=== PATIENT | female | born 1935 | race Caucasian/White ===

== ENCOUNTER 2017-12-08 17:49 | Emergency (ER) | payer MEDICARE, OTHER ==
[~2017-12-08] VITALS: Ht 165.1 cm; Wt 86.6 kg
[~2017-12-08 17:49] MED LIST: AMBIEN 5 MG TABL5 M1 PO; CENTRUM SILVER1 EAC4 PO; CIPRO500 MG PO; COZAAR 50 MG TA50 M1 PO; FLEXERIL PO; KLOR-CON 1010 MEQ; LASIX 20 MG TAB20 MG; LEVOTHYROXIN0.025 MG PO; LYRICA 50 MG50 MG PO; NIACIN 100MG T100 M1 PO; NORCO 5-325 TA1 EAC1 PO; NORCO 5-325 TA1 EACH PO; OMEGA-31000 M1 PO; PHENAZOPYRIDIN200 M2 PO; PREVACID15 MG PO; SIMVASTATIN20 MG PO; TIZANIDINE HCL4 MG PO; ZOLOFT25 MG PO
[2017-12-08] MEDS ORDERED: BUSPIRONE HCL10 MG PO (18:03)
[2017-12-08 18:17] LABS: URINE BILIRUBIN NEGATIVE (Negative); URINE BLOOD 2+ (Negative); URINE CLARITY CLOUDY; URINE COLOR YELLOW; URINE GLUCOSE-RANDOM NEGATIVE (Negative); URINE KETONES NEGATIVE (Negative); URINE LEUKOCYTES-REFLEX 3+ (Negative); URINE NITRITE-REFLEX POSITIVE (Negative); URINE PROTEIN 2+ (Negative); URINE UROBILINOGEN 0.2 E.U./dl (0.2-1.0)
[2017-12-08 18:25] LABS: BACTERIA-REFLEX >30 Many /HPF (None Seen); CASTS None Seen /LPF (None Seen); CRYSTALS None Seen /LPF (None Seen); SQUAMOUS 0-3 Few /LPF (0-3); URINE WBC-REFLEX >25 Many /HPF (0-5)
[2017-12-08] MEDS ORDERED: CIPRO500 MG PO (18:38)
[2017-12-08 18:41] VITALS: BP 128/59
== END 2017-12-08 18:44 | disposition home or self-care (01) ==
LOC: M.ERS 17:49
PROVIDERS: Physician Assistant
DX: N39.0 Urinary tract infection, site not specified (principal)

== ENCOUNTER 2019-09-21 12:53 | Emergency (ER) | payer MEDICARE, OTHER ==
[~2019-09-21] VITALS: Ht 172.7 cm; Wt 86.2 kg
[~2019-09-21 12:53] MED LIST changes: +BUSPIRONE HCL10 MG PO
[2019-09-21] MEDS ORDERED: TIZANIDINE HCL4 M1 PO (13:08)
[2019-09-21] MEDS ORDERED: TRAMADOL 50 MG50 MG PO (13:09)
[2019-09-21] MEDS ORDERED: LIPITOR 20 MG T20 M1 PO (13:09)
[2019-09-21] MEDS ORDERED: NORCO 5-325 TA1 EAC1 PO (14:46)
[2019-09-21 15:14] VITALS: BP 111/70
== END 2019-09-21 15:14 | disposition home or self-care (01) ==
LOC: M.ERS 12:53
DX: G57.91 Unspecified mononeuropathy of right lower limb (principal)

== ENCOUNTER → 2019-09-29 | Outpatient (CLI) | payer MEDICARE, OTHER ==
[~2019-09-29] MED LIST changes: +LIPITOR 20 MG T20 M1 PO; +TIZANIDINE HCL4 M1 PO; +TRAMADOL 50 MG50 MG PO
--- NOTE | 2019-09-29 12:59 | 2DMMODE ---
[place] [address] 2 D/M-MODE ECHOCARDIOGRAM Name: BERNICEFAITH Erendira Room: [facility]#: [id number] Admission: 09/29/19 Attend Phys: Mayco Brothers, Discharge: Date of : 35 Date of Service: 09/29/19 1257 Report #: [id number] THIS REPORT FOR: cc: Jose Marie MD, K. Gay MD Blick, David R. MD [facility] ~ APPROVED REPORT Study performed: 09/29/2019 11:11:36 EXAM: Comprehensive 2D, Doppler, and color-flow Echocardiogram Patient Location: Out-Patient BSA: 1.96 HR: 55 bpm BP: 138/82 mmHg Other Information Study Quality: Good Indications Dyspnea 2D Dimensions IVSd: 10.26 (7-11mm) LVOT Diam: 20.51 (18-24mm) LVDd: 41.19 mm PWd: 10.57 (7-11mm) Ascending Ao: 33.98 (22-36mm) LVDs: 18.67 (25-40mm) Aortic Root: 26.85 mm Volumes Left Atrial Volume (Systole) LA ESV Index: 13.70 mL/m2 Aortic Valve AoV Peak Miguel.: 1.52 m/s AO Peak Gr.: 9.19 mmHg LVOT Max P.40 mmHg AO Mean Gr.: 4.93 mmHg LVOT Mean P.70 mmHg LVOT Max V: 0.92 m/s AO V2 VTI: 33.01 cm LVOT Mean V: 0.60 m/s MARTHA (VTI): 2.41 cm2 LVOT V1 VTI: 24.06 cm Mitral Valve E/A Ratio: 0.91 [place] [address] 2 D/M-MODE ECHOCARDIOGRAM Name: FAITH QUEEN Room: [facility]#: [id number] Admission: 09/29/19 Attend Phys: Mayco Brothers, Discharge: Date of : 35 Date of Service: 09/29/19 1257 Report #: [id number] MV Decel. Time: 331.51 ms MV E Max Miguel.: 0.80 m/s MV PHT: 96.14 ms MVA (PHT): 2.29 cm2 TDI E/Lateral E': 16.00 E/Medial E': 13.33 Medial E' Miguel.: 0.06 m/s Lateral E' Miguel.: 0.05 m/s Pulmonary Valve PV Peak Miguel.: 1.01 m/s PV Peak Gr.: 4.09 mmHg Tricuspid Valve RAP Estimate: 5.00 mmHg TR Peak Gr.: 22.57 mmHg RVSP: 27.57 mmHg PA Pressure: 27.57 mmHg Left Ventricle The left ventricle is normal size. There is normal LV segmental wall motion. There is normal left ventricular wall thickness. Left ventricular systolic function is normal. The left ventricular ejection fraction is within the normal range. LVEF is 60-65%. Grade I - abnormal relaxation pattern. Right Ventricle The right ventricle is normal size. The right ventricular systolic function is normal. Atria The left atrium size is normal. The right atrium size is normal. Aortic Valve Mild aortic valve sclerosis. No aortic regurgitation is present. There is no aortic valvular stenosis. Mitral Valve Mild mitral annular calcification. There is trace mitral valve regurgitation noted. No evidence of mitral valve stenosis. Tricuspid Valve The tricuspid valve is normal in structure. Mild tricuspid regurgitation. estimated pa pressure 30 mm [place] [address] 2 D/M-MODE ECHOCARDIOGRAM Name: FAITH QUEEN Erendira Room: [facility]#: [id number] Admission: 09/29/19 Attend Phys: Mayco Brothers, Discharge: Date of : 35 Date of Service: 09/29/19 1257 Report #: [id number] The pulmonary valve is normal in structure. There is trace pulmonic valvular regurgitation. Great Vessels The aortic root is normal in size. IVC is normal in size and collapses >50% with inspiration. Pericardium There is no pericardial effusion. <Conclusion> LVEF is 60-65%. Mild aortic valve sclerosis. <ELECTRONICALLY SIGNED> By: Tom Tesfaye MD, FACC 09/29/19 1257 1257 1257 Tom Tesfaye MD, FAC /INF
== END ==
LOC: M.CRD 10:43
DX: I08.3 Combined rheumatic disorders of mitral, aortic and tricuspid valves (principal); I50.32 Chronic diastolic (congestive) heart failure

== ENCOUNTER 2020-09-22 21:02 | Emergency (ER) | payer MEDICARE, OTHER ==
[~2020-09-22] VITALS: Ht 165.1 cm; Wt 86.2 kg
[2020-09-22] MEDS ORDERED: ZYRTEC10 M4 PO (21:12)
[2020-09-22] MEDS ORDERED: PLAVIX 75 MG TA75 M1 PO (21:13)
[2020-09-22] MEDS ORDERED: DRIZALMA SPRINK60 MG PO (21:13)
[2020-09-22] MEDS ORDERED: ELIQUIS5 MG PO (21:14)
[2020-09-22] MEDS ORDERED: TOPROL XL25 MG PO (21:14)
[2020-09-22] MEDS ORDERED: PROTONIX40 M4 PO (21:15)
[2020-09-22 22:55] VITALS: BP 150/78
== END 2020-09-22 22:55 | disposition home or self-care (01) ==
LOC: M.ERS 21:02
DX: S00.83XA Contusion of other part of head, initial encounter (principal); Z86.73 Personal history of transient ischemic attack (TIA), and cerebral infarction without residual deficits; Z79.899 Other long term (current) drug therapy; Z98.890 Other specified postprocedural states; W22.01XA Walked into wall, initial encounter; Y93.89 Activity, other specified; Y92.89 Other specified places as the place of occurrence of the external cause; Y99.9 Unspecified external cause status

== ENCOUNTER → 2020-10-25 | Outpatient (CLI) | payer MEDICARE, OTHER ==
[~2020-10-25] MED LIST changes: +DRIZALMA SPRINK60 MG PO; +ELIQUIS5 MG PO; +PLAVIX 75 MG TA75 M1 PO; +PROTONIX40 M4 PO; +TOPROL XL25 MG PO; +ZYRTEC10 M4 PO
[2020-10-25 14:18] LABS: ALBUMIN 3.7 g/dL (3.4-5.0); CALCIUM 8.7 mg/dL (8.5-10.1); CREATININE 1.4 mg/dL (0.6-1.3); POTASSIUM 4.4 mmol/L (3.5-5.1); TOTAL BILIRUBIN 0.5 mg/dL (<0.1-1.0); TOTAL PROTEIN 7.3 g/dL (6.4-8.2)
== END ==
LOC: M.LAB 13:50
PROVIDERS: ATTEND Registered Nurse
DX: I48.0 Paroxysmal atrial fibrillation (principal)